=== PATIENT | female | born 2005 | race African-American/Black ===

== ENCOUNTER 2025-06-27 14:48 | Outpatient (CLI) | payer OTHER | END 2025-06-27 14:49 | disposition home or self-care (01) | LOC: SCSMRI 14:48 | PROVIDERS: ATTEND Obstetrics & Gynecology | DX: R79.89 Other specified abnormal findings of blood chemistry (principal); D35.2 Benign neoplasm of pituitary gland | CPT/HCPCS: 70553; 76376 ==